=== PATIENT | male | born 1990 | race Hispanic/Latino ===

== ENCOUNTER 2017-09-28 08:21 | Emergency (ER) | payer BC ==
[~2017-09-28] VITALS: Ht 167.6 cm; Wt 99.8 kg
--- NOTE | 2017-09-28 18:49 | EKG ---
[facility] [address] [facility] [place], [place] [address] Signed Sinus tachycardia Otherwise normal ECG No previous ECGs available Confirmed by JAMIA LINK MD ([id number] on 09/28/2017 6:49:08 PM Electronically Signed By: JAMIA LINK MD 09/28/17 1849 PATIENT NAME: GIANNA BRIAN Electrocardiogram DATE OF : 88 PHYSICIAN: JAMIA LINK MD REPORT #: [id number] REPORT IS CONFIDENTIAL AND NOT TO BE RELEASED WITHOUT AUTHORIZATION
== END 2017-09-28 10:46 | disposition home or self-care (01) ==
LOC: ED 08:21
DX: E86.0 Dehydration (principal); F19.20 Other psychoactive substance dependence, uncomplicated
CPT/HCPCS: 80053; 85025; 93005; 93010; 96374; 99284; G0480; J2060; J7030